=== PATIENT | male | born 1930 | race Caucasian/White ===

== ENCOUNTER 2017-04-05 06:01 | Inpatient (IN) | payer MEDICARE ==
[~2017-04-05] VITALS: Ht 153.9 cm; Wt 50.7 kg
[2017-04-05] VITALS (9 sets, daily range): BP systolic 126–160; BP diastolic 63–89; PULSE 76–100; RESP 12–19; O2SAT 94–97
--- NOTE | 2017-04-05 06:11 | ED.REPORT ---
HPI-Trauma Minor / Fall Date of Service Apr 05, 2017 ED Provider: Jordy Streeter MD Patient is an 87 year old male with a history of CAD and dementia who presents to the ED via EMS due to a witnessed ground level fall. Associated symptoms include right hip pain. Per the shelter staff, there was no injury to the head or neck and the patient did not lose consciousness. Limited history due to patient's dementia. Nursing Notes Stated Complaint: GROUND LEVEL FALL Chief Complaint: Extremity Trauma Nursing Notes Reviewed: Yes Allergies: Coded Allergies: No Known Allergies (Unverified , 04/05/17) General Time Seen by MD: 06:04 Chief Complaint Fall Hx Obtained From: Patient, Supervisor Cooler Service Arrived By: Ambulance Onset Occurred: Just prior to arrival Symptom Duration: Since onset Caused by: Fall on ground Location: Hip right Quality: Painful Severity: Current: Moderate Similar Sx Previous: No Past Medical History Past Medical History dementia Reports: Coronary artery disease Smoking History Unknown if Ever Smoker Social History Other Social History: Lives in shelter Ambulatory Status Independent Review of Systems Constitutional: Denies: Chills, Fever Respiratory: Denies: Non-productive cough, Shortness of breath Musculoskeletal: Reports: Extremity pain (right hip), Denies: Neck pain Skin: Denies Itching, Denies Rash Neurologic: Denies: Change LOC, Headache, Numbness, Weakness Complete sys rev & neg: except as marked. Physical Exam Initial Vital Signs Vital Signs (First) Date Time Temp Pulse Resp B/P Pulse Ox O2 Delivery O2 Flow Rate FiO2 04/05/17 06:02 36.3 76 19 150/89 97 Room Air Initial VS: Reviewed General/Constitutional: Awake, Alert Neck: Atraumatic, Supple Head / Eyes: Atraumatic, Normocephalic, PERRL, EOMI Respiratory / Chest: Atraumatic, Breath sounds NL, Breath sounds = bilat, No respiratory distress Cardiovascular: Heart rate NL, Regular rhythm, Heart sounds NL Abdomen: Atraumatic, Non-tender abdomen firm Lower Extremity / Pelvis / MS: Atraumatic, No deformity pain with rotation of the right hip no tenderness over the greater trochanteric Skin: Atraumatic, Color NL, No rash, Warm, Dry Interpretation & Diagnostics Lab Results Interpretation Result Diagram: 04/05/17 0625 04/05/17 0625 Test 04/05/17 06:25 White Blood Count 6.9th/mm3 (3.8-10.1) Red Blood Count 4.14mil/mm3 (4.40-5.80) Hemoglobin 12.0g/dL (13.8-17.2) Hematocrit 36.1% (41.0-50.0) Mean Corpuscular Volume 87.2fL (81-100) Mean Corpuscular Hemoglobin 29.0pg (27.0-35.0) Mean Corpuscular Hemoglobin Concent 33.2% (32.0-37.0) Red Cell Distribution Width 13.9% (12.3-15.4) Platelet Count 311bil/L (150-400) Neutrophils (%) (Auto) 70.6% (40-74) Lymphocytes (%) (Auto) 19.5% (14-46) Monocytes (%) (Auto) 7.5% (4-12) Eosinophils (%) (Auto) 2.0% (0-5) Basophils (%) (Auto) 0.3% (0-3) Sodium Level 138mEq/L (134-144) Potassium Level 4.4mEq/L (3.5-5.2) Chloride Level 103mEq/L (97-108) Carbon Dioxide Level 24mmol/L (18-29) Blood Urea Nitrogen 21mg/dL (8-27) Creatinine 0.68mg/dL (0.76-1.27) Estimat Glomerular Filtration Rate 118mL/min (>59) Glucose Level 117mg/dL (60-99) Calcium Level 9.2mg/dL (8.5-10.1) Total Bilirubin 0.3mg/dL (0.0-1.2) Aspartate Amino Transf (AST/SGOT) 17U/L (0-50) Alanine Aminotransferase (ALT/SGPT) 16U/L (0-44) Alkaline Phosphatase 106U/L (25-160) Total Protein 6.4g/dL (6.4-8.4) Albumin 3.7g/dL (3.4-5.0) Hold Pineda Top Tube Received (Received) ECG Interpretation ECG Interpretation: anteroseptal infarct, old abnormal T, consider ischemia, anterior leads Time: 06:21 Interpreted by: ED physician Normal ECG Interpretation: Normal rate (75), Normal sinus rhythm X-Ray Interpretation Xray Interpretation: right intertrochanteric fracture X-Ray Ordered: Hip right Interpretation / Wet Read by: Wet read Resident Interpretation: Abnormal exam Re-Eval/Medical Decision Re-Evaluation/Progress #1: Time of Eval: 07:28 Re-Evaluation/Progress Note: Discussed X-ray and plan for admit with the patient's son. Patient understands and agrees to plan. All questions were addressed. Re-Evaluation/Progress #2: Time of Eval: 08:00 Re-Evaluation/Progress Note: Discussed X-ray and plan for admit. Patient agrees to plan. All questions were addressed. Consultation #1: Referral / Consult Name: Jeffrey Toledo MD Consulted With: Orthopedic, Surgeon Call Returned at: 07:31 Tape Edge Machine Operator: Will see patient (later today), Agrees with eval, Agrees with plan Consultation #2: Referral / Consult Name: Lc Burris MD Consulted With: Hospitalist Call Returned at: 07:59 Tape Edge Machine Operator: Agrees with eval, Agrees with plan, Accepts admit Counseled Regarding: Diagnosis, Lab results, Need for admission Discharge & Departure Impression: Primary Impression: Fall Encounter type: initial encounter Qualified Code: W19.XXXA - Unspecified fall, initial encounter Additional Impression: Intertrochanteric fracture Encounter type: initial encounter Fracture type: closed Fracture alignment : nondisplaced Laterality: right Qualified Code: S72.144A - Nondisplaced intertrochanteric fracture of right femur, initial encounter for closed fracture Disposition: ADMITTED TO HOSPITAL Discharge Condition All VS Reviewed: Yes Condition: Stable Scribe Attestation Portions of this note were transcribed by Olivia Cotton. I, Dr. Streeter personally performed the history, physical exam and medical decision-making; I reviewed and confirmed the accuracy of the information in the transcribed note. Signed by: Hermilo Carnes, 04/05/17 Jordy Streeter MD Apr 05, 2017 06:11 Elis Cotton Apr 05, 2017 06:14
[2017-04-05 06:39] LABS: BASOPHILS % (AUTO) 0.3 % (0-3); MONOCYTES % (AUTO) 7.5 % (4-12); Mean Corpuscular Volume 87.2 fL (81-100); NEUTROPHILS % (AUTO) 70.6 % (40-74); Platelet Count 311 bil/L (150-400)
[2017-04-05] MEDS ORDERED: Ondansetron 2 mg/mL 2 mL Inj IVPUSH PRN ×3 (07:50→08:05)
[2017-04-05] MEDS: HYDROmorphone 0.5 mg/0.5 mL iSecure Syringe IVPUSH PRN ×2 (08:00→08:06)
--- NOTE | 2017-04-05 08:05 | DRSVH ---
PROCEDURE: X-RAY CHEST ONE VIEW, PORTABLE ([id number]) INDICATIONS: trauma TECHNIQUE: One view of the chest was acquired. COMPARISON: None. FINDINGS: Surgical changes and devices: None. Lungs and pleura: No pleural effusions or pneumothorax. Lungs are clear. Mediastinum: Mediastinal contours appear normal. Heart size is normal. Bones and chest wall: Generalized osteopenia. A compression fracture of L1 is present, age indetermin ate. No displaced rib fractures seen. Overlying soft tissues appear unremarkable. IMPRESSION: 1. No acute cardiopulmonary abnormality. 2. Compression fracture L1, age-indeterminate. With history of trauma, lumbar spine series is suggest ed. Dictated by: Riki Wayne M.D. on 04/05/2017 at 7:59 Approved by: Riki Wayne M.D. on 04/05/2017 at 8:03
[2017-04-05] MEDS: HYDROcodone-APAP 5-325 mg Tablet PO PRN ×2 (08:17→19:58)
--- NOTE | 2017-04-05 08:29 | DRSVH ---
PROCEDURE: X-RAY PELVIS W/LAT HIP (RT) ([id number]) INDICATIONS: trauma TECHNIQUE: AP pelvis with lateral view(s) of the right hip(s). COMPARISON: None. FINDINGS: Bones: No dislocations. Pelvic ring appears intact. No suspicious bony lesions. There is an inter trochanteric right hip fracture, mildly angulated and impacted. Soft tissues: The visualized bowel gas pattern is normal. No suspicious soft tissue calcifications. IMPRESSION: Intertrochanteric right hip fracture with mild angulation and impaction, orthopedic surgi bel consultation is recommended. Dictated by: Isaac Gómez M.D. on 04/05/2017 at 8:27 Approved by: Isaac Gómez M.D. on 04/05/2017 at 8:28
[2017-04-05 08:34] LABS: APPEARANCE,URINE CLEAR (CLEAR,HAZY); COLOR,URINE STRAW (YELLOW)
[2017-04-05 08:35] LABS: OCCULT BLOOD,URINE NEGATIVE (NEGATIVE); PH,URINE 6.5 (5.0-8.0); UROBILINOGEN,URINE NORMAL (NORMAL)
--- NOTE | 2017-04-05 08:37 | DRSVH ---
PROCEDURE: X-RAY RIGHT FEMUR, TWO VIEWS ([id number]) INDICATIONS: intertrochanteric fx. TECHNIQUE: 3 views of the femur were acquired. COMPARISON: [facility], CR, XR PELVIS W LATERAL HIP RT, 04/05/2017, 6:50. FINDINGS: Bones: There is osteopenia of the visualized osseous structures. A mildly displaced intertrochanter ic fracture of the proximal right femur is redemonstrated. No distal femoral fracture identified. V isualized bony pelvis appears intact. Soft tissues: There are scattered vascular calcifications. IMPRESSION: 1. Mildly displaced intertrochanteric fracture of the proximal right femur redemonstrated. 2. No distal femoral fracture. Dictated by: Kodak Stein M.D. on 04/05/2017 at 8:34 Approved by: Kodak Stein M.D. on 04/05/2017 at 8:35
--- NOTE | 2017-04-05 10:11 | NUR ---
Admit Patient arrived to room 1030 at about 0900. Transferred to bed full assist. Took multiple staff to turn patient to get extra linen out from underneath him, get nancy alarm in place, and conduct a skin check. Per report from ED, they got report the patient had a unstagable pressure ulcer which was not present for me during the skin check and marketing underwriter did skin check as well. Mepelex applied to sacrum, two on spine, and one on each heel for protection as patient is a thin man. Reports pain in his right hip. A&O to himself only. IV Saline locked, on room air, VS completed, nancy alarm and telemetry in place. music sound light technician reported frequent ectopy and I made hospitalistaware and asked if we could check magnesium orders. orders in place-awaiting result. Patient denies chest pain and shortness of breath.
--- NOTE | 2017-04-05 10:14 | PCM.HPMED ---
Subjective Date of Service Apr 05, 2017 Primary Provider: Admitting Physician: Lc Burris MD Primary Care Physician: Brady Sanchez MD Attending Physician: Lc Burris MD Chief Complaint: Status post witnessed ground-level fall History of Present Illness: 87-year-old male with Alzheimer disease, chronic systolic CHF, CKD, dysphagia, history of NSTEMI, pressure ulcer presented after ground level fall, came from [facility]. as per RN at [facility], pt at baseline severely demented, not communicating, AAOx0, pt was walking to the bathroom and fell, pt doesn't use walker at baseline. Pt stayed since 18mo ago as he lived alone and fell, found to have pressure ulcers. Since he stayed in [facility], refusing all meds, had remote hx of cardiac dz, but not actively following hand washer or PCP. Reportedly family was leaning toward comfort care. ED VS stable, afebrile, Labs were unremarkable.Xray showed Rt proximal femur IT fx. upon interview, pt was AAOx0, refused physical examination upon multiple attempt. unable to follow commands or answer questions. Review of Systems: Pertinent positives as noted in history of present illness. All other systems were reviewed and are negative Allergies Coded Allergies: No Known Allergies (Unverified , 04/05/17) Home Medications not on any meds as pt refuses PMH as described above in HPI Surgical History Unable to obtain surgical history the patient's until status Family History Unable to obtain FHx due to the patient's until status Social History Smoking Status: Unknown if Ever Smoker Exam Vital Signs Vital Sign - Last Date Time Temp Pulse Resp B/P Pulse Ox O2 Delivery O2 Flow Rate FiO2 04/05/17 09:19 36.5 95 16 156/83 94 Room Air Exam Cachectic elderly gentleman nonpurposeful movement of his hands, confused AAOX0 no JVD, MMM, no LAD RRR, nl s1, s2 no mrg CTAB, no w,c S,ND,NT,normoactive BS+ warm, no edema, pulses 2/2 LROM of Rt hip due to pain Lab and Diagnostics Result Diagram: 04/05/1762404/05/17 0625 X-Rays, CTs and MRIs PROCEDURE: X-RAY RIGHT FEMUR, TWO VIEWS ([id number]) INDICATIONS: intertrochanteric fx. TECHNIQUE: 3 views of the femur were acquired. COMPARISON: [facility], CR, XR PELVIS W LATERAL HIP RT, 04/05/2017, 6:50. FINDINGS: Bones: There is osteopenia of the visualized osseous structures. A mildly displaced intertrochanteric fracture of the proximal right femur is redemonstrated. No distal femoral fracture identified. Visualized bony pelvis appears intact. Soft tissues: There are scattered vascular calcifications. IMPRESSION: 1. Mildly displaced intertrochanteric fracture of the proximal right femur redemonstrated. 2. No distal femoral fracture. Dictated by: Kodak Stein M.D. on 04/05/2017 at 8:34 Approved by: Kodak Stein M.D. on 04/05/2017 at 8:35 Assessment & Plan 87-year-old male with Alzheimer disease, chronic systolic CHF, CKD, dysphagia, history of NSTEMI, pressure ulcer presented after witnessed ground level fall, came from [facility]. Acute, active Witnessed ground-level Mechanical fall, POA, resultant Rt proximal IT fx -appreciate ortho consult, likely needs discussion with Son KENNA, regarding pros and cons of this debilitated gentleman -will assess pre-op risks once pt is going for surgery -pain control with tylenol, morphine as needed Chronic, stable hx of chronic HFrEF, NSTEMI, presumed stable pressure ulcer, wound care consult Alzheimer dementia, presumed stable dispo:Patient will be admitted with inpatient status with expectation of inpatient therapy for more than 2 midnights diet:NPO for now, resume dysphagia soft once evaluated by surgery dvt ppx:SCD DNR/DNI per POLST Time spent 65min Lc Burris MD Apr 05, 2017 10:14
--- NOTE | 2017-04-05 12:58 | NUR ---
Inpatient Wound Nurse Call was placed by this CWON RN to [facility] Amalia Neves to confirm unstageable pressure injury over R pelvis that was apparently reported by ER staff when patient was transferred to unit. [facility] Staff informed CWON that wound healed long ago and is no longer an active issue. No wound care required at this time.
[2017-04-05] MEDS ORDERED: NA P133E23 RC (13:44)
[2017-04-05] MEDS ORDERED: BISA10SU61 RC (13:44)
[2017-04-05] MEDS ORDERED: ACET325C PO (13:44)
[2017-04-05] MEDS ORDERED: MAGN400O4 PO (13:44)
[2017-04-05] MEDS: 0.9% Sodium Chloride 1,000 ML IV SCH (22:56)
--- NOTE | 2017-04-05 23:27 | HP ---
[address] [address] HISTORY AND PHYSICAL PATIENT: ZAIRA PIPER : 1930 MR#: [id number] ADMIT: 04/05/2017 JOB ID: [id number] DATE OF SERVICE: 04/05/2017 HISTORY OF PRESENT ILLNESS: The patient is seen in consultation after being admitted for a right hip fracture. He is 87 years old, moderately demented, lives in a residential, and his son is the primary historian. His son states that he has been deteriorating steadily over time and now sleeps much of the day. He continues to walk, but is unstable and does not walk much and has had a significant amount of weight loss over the last several months. PAST MEDICAL HISTORY: Notable for dysphagia, chronic renal disease, chronic congestive heart failure. PHYSICAL EXAMINATION: On examination, he is resting comfortably in bed. Any motion of his right leg causes discomfort. Skin is intact over the right hip. RADIOGRAPHS: Reveal a basilar neck right hip fracture. ASSESSMENT AND PLAN: Discussion with the son today about the treatment options. His son was counseled that the standard treatment for hip fractures is surgical and this is the most likely thing to get the patient up and out of bed transferring and potentially weightbearing again in the future. The patient has been steadily declining in his activities, and he has, by the son's history, fallen many times in the last month, showing a significant decline in his functional capabilities. An alternative approach to open reduction, internal fixation of the hip fracture is to proceed with a hospice care approach to the hip fracture, and this would be reasonable and acceptable. The patient is unlikely to ambulate again with this approach, but it is questionable whether or not he would ever be a safe ambulator following surgical treatment. The family wishes to think about this and they wish to observe him over the next several days to see how much of an issue pain control will be with standard nursing care and a stabilized fracture. We can proceed as the family wishes in this manner and will stay in touch with them as to their preferences. At this point in time, their preference is for observation and nonsurgical management.
[2017-04-06] MEDS: HYDROcodone-APAP 5-325 mg Tablet PO PRN ×5 (00:10→21:18)
[2017-04-06 00:49] VITALS: BP 97/63; PULSE 68; RESP 16; O2SAT 95
--- NOTE | 2017-04-06 04:51 | NUR ---
Pain / appetite Pain adequately controlled with one Vicodin every 4 hours, takes it crushed in pudding without signs of aspiration. Pt was allowed dysphagia diet until midnight but was uninterested in eating more than a few bites. NPO past midnight in case of surgery. Q2 hour turns for skin care. IV fluids infusing at low rate, modest urine output via [place]. Lizy alarm on for safety. Hourly rounding ongoing.
[2017-04-06 06:22] VITALS: BP 128/63; PULSE 79; RESP 16; O2SAT 98
[2017-04-06 08:56] VITALS: BP 133/81; PULSE 65; RESP 18; O2SAT 94
[2017-04-06] MEDS ORDERED: diphenhydrAMINE 25 mg Capsule PO PRN (09:55)
[2017-04-06] MEDS ORDERED: HYDROmorphone 1 mg/mL Inj IVPUSH PRN (09:55)
--- NOTE | 2017-04-06 10:45 | PCM.PNMED ---
Subjective Date of Service Apr 06, 2017 Subjective pt barely oriented to himself, still has nonpurporseful movement, c/o pain on hip, cannot rate his pain on scale, palliative care was consulted for pain management. to facilitate discussion with family awaits son and for possible surgery Exam Vital Signs Vital Sign - Last Date Time Temp Pulse Resp B/P Pulse Ox O2 Delivery O2 Flow Rate FiO2 04/06/17 08:56 36.6 65 18 133/81 94 Room Air Intake and Output 04/05/17 04/05/17 04/06/17 Cumulative From/Thru 15:00 23:00 07:00 04/05/17 06:02 - 04/06/17 06:22 Intake Total 741 ml 741 ml Output Total 400 ml 350 ml 750 ml Balance -400 ml 391 ml -9 ml Intake Oral 228 ml 228 ml IV Total 513 ml 513 ml Output Urine Total 400 ml 350 ml 750 ml # Bowel Movements 0 0 Exam Cachectic elderly gentleman nonpurposeful movement of his hands, AAOx1 no JVD, MMM, no LAD RRR, nl s1, s2 no mrg CTAB, no w,c S,ND,NT,normoactive BS+ warm, no edema, pulses 2/2 LROM of Rt hip due to pain IVs and Medications Medications Reviewed: Medications were reviewed in detail Lab and Diagnostics Result Diagram: 04/05/1762404/05/17624 X-Rays, CTs and MRIs PROCEDURE: X-RAY RIGHT FEMUR, TWO VIEWS ([id number]) INDICATIONS: intertrochanteric fx. TECHNIQUE: 3 views of the femur were acquired. COMPARISON: [facility], CR, XR PELVIS W LATERAL HIP RT, 04/05/2017, 6:50. FINDINGS: Bones: There is osteopenia of the visualized osseous structures. A mildly displaced intertrochanteric fracture of the proximal right femur is redemonstrated. No distal femoral fracture identified. Visualized bony pelvis appears intact. Soft tissues: There are scattered vascular calcifications. IMPRESSION: 1. Mildly displaced intertrochanteric fracture of the proximal right femur redemonstrated. 2. No distal femoral fracture. Dictated by: Kodak Stein M.D. on 04/05/2017 at 8:34 Approved by: Kodak Stein M.D. on 04/05/2017 at 8:35 Assessment & Plan 87-year-old male with Alzheimer disease, chronic systolic CHF, CKD, dysphagia, history of NSTEMI, pressure ulcer presented after witnessed ground level fall, came from [facility]. Acute, active Witnessed ground-level Mechanical fall, POA, resultant Rt proximal IT fx -appreciate follow up, awaits surgery vs no surgery -pt doesn't appearted to have any active cardiac dz which needs cardiac w/u prior to surgery, no s/s of ADHF although pt was not on any meds for long time. EKG sinus, no ischemic chg, renal function stable. -pain control with tylenol, morphine as needed -appreciate palliative care for pain management. Chronic, stable hx of chronic HFrEF, NSTEMI, presumed stable pressure ulcer, wound care consult Alzheimer dementia, presumed stable dispo: pending, back to [facility] after surgery or no surgery diet:NPO for now, resume dysphagia soft once evaluated by surgery dvt ppx:SCD DNR/DNI per POLST VTE Mechanical Devices: Intermittant Pneumatic CD Time spent 35min Lc Burris MD Apr 06, 2017 10:45
--- NOTE | 2017-04-06 11:16 | NUR ---
Palliative Care Palliative Care received verbal order from Dr Burris 04/06/17 to assist with goals of care. Patient admitted 04/05/17. John (son/DPOA) [phone] Dotty (daughter) [phone] Palliative Care to follow. Katie Latif
[2017-04-06 12:18] VITALS: BP 112/63; PULSE 55; RESP 16; O2SAT 92
[2017-04-06] MEDS: 0.9% Sodium Chloride 1,000 ML IV SCH (12:21)
[2017-04-06] MEDS ORDERED: diphenhydrAMINE 2.5 mg/mL 5 mL Syrup PO PRN (12:29)
--- NOTE | 2017-04-06 13:25 | PCM.CONPAL ---
Date of Service Apr 06, 2017 Date of Hospital Admission: Apr 05, 2017 at 08:19 Date of Palliative Consult: Apr 06, 2017 Requesting Provider: Lc Burris MD Reason Palliative Care Consult: Pain, Goals of Care Discussion Hospital Unit @time of consult: Orthopedic/Surgical Care Palliative Care Recommendation Summary of palliative recommendations: -Symptom management (Pain/other) Acute hip fx-comfortable at rest. Tends to fall asleep with hydrocodone 5/325 but also adequate pain control from this med Unclear whether he would walk again with surg but definitely not without surg. Per son the main issue is pain management and that seems to be relatively easy with hydrocodone His son does not think patient would be interested in surg repair but apparently there is concern for other members of the family. Offered to assist in discussion with family to review issues and goals. Will begin lax due to regular dosing of opiates. Dementia- moderate and progressive. QOL has been declining. 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 Details not available Weight loss- unclear if only based in his dementia but not appropriate to evaluate at this time Financial issues-defer to SW/CM to assist. -DPOA/Advanced Directives/POLST-DNR/DNI. Unclear if POLST has been completed. Consider redo at discharge with change to comfort. -Family/emotional support- son. -Spiritual support-pt states he is not interested Offered assistance in discussion with family to the son- John ([phone]). Reviewed goal would be to decide re surgery in the next 24 hours and if decision is to not pursue surgical intervention then plan for placement. he will contact the office tomorrow if needed. Encouraged nursing staff to monitor for pain raquel with turning and consider prn dosing. diet advanced since for now- no surg. CM/SS aware of financial issues. Consider hospice info visit upon discharge. Problems: End of Life Preferences DNR/DNI Goals of Care At this point goal is for nonsurgical approach of time and patience. This will mean likely back to ECF soon as long as pain is controlled. He will be unlikely to attempt OOB in near future due to the reminder of pain. Disposition Presuming back to [facility] when stable with bedrest and pain meds Resuscitation Status Resuscitation Status: DNR/DNI:Do Not Resuscitate/Intubate Limited Interventions: Medications and IV Fluid POLST Updates/Changes Artificially Admin Nutrition: No Artifical Nutrition by Tube POLST Discussed with: Health Care Agent (DPOAHC) . Pain: Mild Pt History History of Present Illness PALLIATIVE CARE CONSULTATION Reason: GOC/pain management Requesting- Dr. Dayton So taken from his hospital record and from TC discussion with his son John. 87 yo male who has been at [facility] under the care of Dr. Sanchez since October of this year. He had been at home with progressive dementia, frequent falls and what sounds like poor self care. He has had a decrease in appetite and would forget to eat and was having progressive weight loss. Since being at [facility] he was discharged from rehab due to an unwillingness/ inability to cooperate. He has continued to lose weight with report of a 20# loss over the past 4-5 months. He has frequent falls. His son is DPOAHC and manages his finances. He has been working on getting him on medicaid to cover [place] expenses and states he just compiled the paperwork. His son feels his father would prefer to do nothing about his fracture. The pt states the same but doesn't recall having a fx. The son states Dr. Toledo had made a statement that the decision on surg could be postponed for up to 1 week and the son took that to mean he would be here for that time. He fears he will try and get out of bed again at the [facility] if he is sent back too soon. His son indicates that there is some concern by his children if the decision is to not do surgery. Past Medical History Significant PMH Noted: Hx dementia hx ASCAD with hx OK hx abrasions and ulcerations on legs from fall-took months to heal Alleged CRI but creat wnl weight loss gait instability unknown smoking or ETOH hx-- none recently Social History Occupation: retired Social Support: son John and LYNSEY Spiritual Support Spiritual Support unknown Responsive Patient Symptoms Pain (current): Mild Tiredness/Fatigue: Moderate (son states sleeps a lot daytime, can get agitated in royer) Nausea: None Depression: None Anxiety: None Anorexia: Moderate Constipation unknown Palliative Performance Scale PPS Patient Status: Baseline PPS Ambulation: Mainly Sit/Lie PPS Activity: Unable to do any activity PPS Self-Care: Considerable assistance required PPS Intake: Normal or reduced PPS Conscious Level: Full or drowsey, +/- confusion Performance Scale: 30% ADLs ADL Ambulation: Totally Bed ADL Dressing: Occasional assistance necessary ADL Feeding: Occasional assistance necessary ADL Hygene/bathing: Total care ADL Transfers: Total care Allergy Allergies Reviewed: Yes Medications Current Medications: Current Medications Ondansetron HCl 4 mg Q15MIN PRN IVPUSH Last administered on 04/05/17 08:00; Admin Dose 4 MG; Start 04/05/17 at 07:50; Stop 04/05/17 at 08:03; Status DC Hydromorphone HCl 0.5 mg Q15MIN PRN IVPUSH Last administered on 04/05/17 08:06 ; Admin Dose 0.5 MG; Start 04/05/17 at 07:50; Stop 04/05/17 at 20:30; Status DC Ondansetron HCl 4 to 8 mg Q4H PRN IVPUSH; Start 04/05/17 at 08:00 Acetaminophen 650 mg Q4H PRN PO; Start 04/05/17 at 08:00 Acetaminophen/ Hydrocodone Bitart 1-2 TABS Q4H PRN PO Last administered on 04/06 12:22; Admin Dose 1 TABLET; Start 04/05/17 at 08:00 Ondansetron HCl Dose range: 4 mg to 8 mg Q4H PRN IVPUSH; Start 04/05/17 at 08: 05; Stop 04/05/17 at 20:30; Status DC Sodium Chloride 1,000 ml @ 75 mls/hr [id number] IV Last administered on 04/06/17 12:21; Admin Dose 75 MLS/HR; Start 04/05/17 at 20:35 Hydromorphone HCl for severe pain Q4H PRN IVPUSH; Start 04/06/17 at 09:55 Diphenhydramine HCl 12.5 mg Q6H PRN PO; Start 04/06/17 at 09:55; Stop 04/06/17 at 12:29; Status DC Diphenhydramine HCl 12.5 mg Q6H PRN PO; Start 04/06/17 at 12:29 Scheduled PRN Acetaminophen (Acetaminophen) 325 Mg Capsule 325-650 MG PO q4 hours PRN PRN For Pain Bisacodyl (Dulcolax Rectal) 10 Mg Supp.rect 10 MG RC DAILY PRN PRN For Constipation Magnesium Hydroxide (Milk of Magnesia) 400 Mg/5 Ml Oral.susp 30 ML PO DAILY PRN PRN For Constipation Na Phos,M-B/Na Phos,Di-Ba (Fleet Enema) 133 Ml Enema 133 ML RC DAILY PRN PRN For Constipation Objective Findings Exam Vital Sign - Last Date Time Temp Pulse Resp B/P Pulse Ox O2 Delivery O2 Flow Rate FiO2 04/06/17 12:18 36.7 55 16 112/63 92 Room Air Intake and Output 04/05/17 04/05/17 04/06/17 Cumulative From/Thru 15:00 23:00 07:00 04/05/17 06:02 - 04/06/17 06:22 Intake Total 741 ml 741 ml Output Total 400 ml 350 ml 750 ml Balance -400 ml 391 ml -9 ml Intake Oral 228 ml 228 ml IV Total 513 ml 513 ml Output Urine Total 400 ml 350 ml 750 ml # Bowel Movements 0 0 Objective comfortable in bed but with twinges of pain R hip General: Oriented, Person HEENT: EOMI, Scleral Anicteric Heart: Regular Rate/Rhythm Lungs: Clear to Auscultation Abdomen: Soft Neuro: Follows Commands, Spontaneous Eye Opening, Cranial Nerve 3-12 Intact Extremities: No Edema Lab/Diagnostics Lab and Imaging results reviewed in detail in EMR. Hgb 12, Cr-.68 Patient/Family Conference Members Present Family Members Present TC to leland Lopez Medical Team Members Present? Claudette CAR, PC Discussion/Goals of Care Discussion FAMILY UNDERSTANDING OF DISEASE: DISEASE PROGRESSION/EVIDENCE OF DECLINE: SYMPTOM BURDEN: GOALS: HOPES/WORRIES: FAMILY WISHES/VALUES: Do you want to be told truth about his illness, even if unpleasant? Does family want to know prognosis when it can be predicted, to better guide treatment decisions? What is quality of life for the patient: to be able to interact with their loved ones and friends, to travel, not to be bedbound, to be independent in taking care of themselves: Would patient choose quality of life over quantity of life? Would comfort care be more important than being awake and alert? If patient is no longer alert and aware because of their illness, would you choose comfort for them? Palliative Care counselled: Time spent Total time 60 minutes; >50% face to face with patient and/or family, providing counselling regarding plans and recommendations, and in care coordination with his/her medical teams. This included eval of pt review of chart discussion with son and CM and hospitalist. copies to: Brady Sanchez MD, Deborah A MD Apr 06, 2017 13:24
--- NOTE | 2017-04-06 13:43 | NUR ---
Pain/Appetite Patient was denying pain this AM but upon turning to touching RLE, patient grimaces and yells in pain. He was restless for most of the morning-ripping telemetry and his gown off. He continued to refuse pain medication until a little after noon. He took the pain pill and has been sleeping calmly since. Patient has not wanted much to eat this shift. Did encourage some bites of vanilla pudding with pain medication administration. He took two bites and refused any more. Continuing to turn patient Q2 hours. Assessing pain level and pain management needs. Did speak with Dr. Crowley with palliative care and she is following his pain management and effectiveness of current regimen.
--- NOTE | 2017-04-06 13:47 | NUR ---
Activity Patient was restless this AM-pulling telemetry leads off and taking his gown off. When attempting to help untangle the patient from the telemetry leads, he told staff to leave him alone. Telemetry has been DC'd and patient continues to be in bed without a gown but has blankets on and is currently sleeping comfortably and calmly. He does not attempt to get out of bed- with any movement, he grimaces and yells in pain. Continuing Q2 hour turns. Mepelex in place for skin protection. Koenig catheter in place. Addendum: 04/06/17 at 1612 by PHI ANDERSON RN Patient is much more calm compared to the beginning of this shift. He is pleasant to talk to and stretches his arms out for a hug when you walk into the room. He did accept a pain pill and has been less restless in bed.
[2017-04-06 20:19] VITALS: BP 161/84; PULSE 99; RESP 16; O2SAT 93
--- NOTE | 2017-04-06 23:02 | NUR ---
Agitation/pain Pt was found to have pulled out his IV and was tugging on Hamilton. Pt was instructed not to pull hamilotn, as it would hurt him and be very painful, pt appears to understand and has not pulled on hamilton since. Pt however very agitated while turning in bed and grabs at staff. Three people needed to safely turn pt. Pt was able to take 1 Vicodin for pain after being turned in bed. Pt now appears comfortable. Addendum: 04/07/17 at 0632 by MICHA MOMIN RN Itching Pt given liquid Benadryl for itching skin all over. This did seem to help as pt is no longer itching himself.
[2017-04-07 05:01] VITALS: BP 158/89; PULSE 66; RESP 16; O2SAT 97
[2017-04-07] MEDS: 0.9% Sodium Chloride 1,000 ML IV SCH ×2 (06:41→17:58)
[2017-04-07] MEDS: HYDROcodone-APAP 10-325 mg PO SCH ×3 (09:00→21:45)
--- NOTE | 2017-04-07 09:09 | PCM.PALLBR ---
Palliative Care Recommendation Summary of palliative recommendations: Symptom management (Pain/other): Acute hip fx-comfortable at rest. Has tolerated prn HC/APAP () well, but had agitation last night, likely due to pain, resolved with use of pain meds. 1. Pain: Start scheduled HC/APAP () 1 po q 6 hours to prevent pain, and monitor effectiveness. Leave PRN HC/APAP (325) order in place for now and monitor how often breakthrough pain meds are needed, if at all. 2. Laxative Regimen: Continue Senna q HS to prevent opiate induced constipation. 3. Quiet delirium: trial 2.5mg of olanzapine now to see if able to reduce restlessness, inattentiveness. If helpful, may start 2.5mg q HS. (Bonus side effect: appetite stimulant). Prognosis: Unclear whether he would walk again with surgery but definitely not without surgery. Pt is eligible for hospice based on his heart failure with EF of 15-20%, and fact that he will now be bedbound due to his hip fracture that family does not plan to get repaired. Pt is moderately demented but able to feed himself and engage in a limited conversation (when not delirious). He cannot understand the consequences of any health choices. Harish Index calculation is 19 for this pt, which means he has a 49-62% chance of dying in next six months. Goal: Per son John ([phone]), the main issue is to pain management. Family Meeting: Dr. Momin met with John today and informed him that his father says he does not want surgery, but currently the patient is not capacitated to understand positive and negative outcomes of this decision, so John needs to act on his behalf as his decision maker. John states he doesn't want to put his Dad through any surgery. John relates that his father has had several falls at home when he was alone and has failed to be able to participate in rehab at his nursing facility after his last hospital admission. John is now interested in comfort care and would like to have a hospice information visit set up. He gave his number and that of his , Julia ([phone]) as contacts for the hospice agency. He said that Julia is his father's alternate POA, and can sign paperwork if John is not available. John plans to go out of town for a short business trip in next few days. John and Dr. Momin also reviewed a POLST form together. John says there is a POLST form at [facility] but he thinks it says "DNR/DNI with limited interventions. " He is now interested in changing the POLST form to read: DNR/DNI with comfort care. He took a blank form home to discuss with the rest of his family. He is the only living child of the patient, but his four adult children are also involved in the family discussions about how to help the patient. He plans to bring the POLST back and complete it with Pall Care Team after talking to his family at home. -DPOA/Advanced Directives/POLST-DNR/DNI. Prior POLST at [facility] with limited interventions. Plan is to change/update/make a new POLST at discharge with change to comfort. -Family/emotional support- son John as above. -Spiritual support- pt states he is not interested Problems: End of Life Preferences DNR/DNI Goals of Care At this point goal is for nonsurgical approach of time and patience. This will mean likely back to ECF soon as long as pain is controlled. He will be unlikely to attempt OOB in near future due to the reminder of pain. Disposition Presuming back to [facility] when stable with bedrest and pain meds. POA leland Lopez asked for a hospice info visit today (04/07). Resuscitation Status Resuscitation Status: DNR/DNI:Do Not Resuscitate/Intubate Limited Interventions: Medications and IV Fluid POLST Updates/Changes Previous POLST?: Yes POLST Last Review Date: Apr 07, 2017 Artificially Admin Nutrition: No Artifical Nutrition by Tube POLST Discussed with: Health Care Agent (DPOAHC) POLST Review Outcome: No Change . Advanced Care Planning Address: POLST, Code status change, Comfort care Total time 65 minutes; >50% face to face with patient and/or family, providing counselling regarding plans and recommendations, and in care coordination with his/her medical teams. Palliative Brief Note Date of Service Apr 07, 2017 . Palliative Care Follow-up Reason: GOC/pain management Requesting- Dr. Dayton So taken from his hospital record and from TC discussion with his son John. Patient Identification: 87 yo male who has been at [facility] under the care of Dr. Sanchez since October 2016. He had been at home with progressive dementia, frequent falls and what sounds like poor self care. He has had a decrease in appetite and would forget to eat and was having progressive weight loss. Since being at [facility] he was discharged from rehab due to an unwillingness/ inability to cooperate. He has continued to lose weight with report of a 20# loss over the past 4-5 months. He has frequent falls. His son is DPOAHC and manages his finances. He has been working on getting him on medicaid to cover [place] expenses and states he just compiled the paperwork. His son feels his father would prefer to do nothing about his fracture. The pt states the same but doesn't recall having a fx. The son states Dr. Toledo had made a statement that the decision on surg could be postponed for up to 1 week and the son took that to mean he would be here for that time. He fears he will try and get out of bed again at the [facility] if he is sent back too soon. His son indicates that there is some concern by his children if the decision is to not do surgery. Subjective: pt restless, picking at sheets, his IV line, pushing and pulling at his over the bed table, states his pudding (with pain pill crushed in it) tastes bad. Encouraged to finish last bite, and he did. Later refused to take olanzapine (dissolvable) from his RN, ordered as trial for quiet delirium (see Plan). Exam: Overall, he is comfortable in bed at rest, source of pain: R hip General: oriented to self only.thinks he is at [facility]. very restless in bed Chest wall: concave, with kyphosis of back HEENT: EOMI, Scleral Anicteric, only intermittent eye contact Heart: Regular Rate/Rhythm Lungs: Clear to Auscultation Abdomen: Soft,+bowel sounds, scaphoid abdomen Neuro: alert, speech clear, able to engage in conversation but distracted, inattentive to examiner, Cranial Nerve 3-12 Intact, Extremities: No Edema Yandy Momin MD Apr 07, 2017 09:09
[2017-04-07] MEDS: HYDROcodone-APAP 5-325 mg Tablet PO PRN (09:18)
[2017-04-07] MEDS: OLANZapine Zydis ODT 5 mg Tablet PO STA ×2 (09:24→10:29)
[2017-04-07] MEDS ORDERED: OLANZapine Zydis ODT 5 mg Tablet PO SCH (09:25)
--- NOTE | 2017-04-07 10:00 | NUR ---
Verbal Signature given by phone by pt's DPOA John Sosa. Pt is not oriented to understand YASMIN Hensley
--- NOTE | 2017-04-07 10:33 | NUR ---
Agitation Patient has been restless so far this shift with no change after pain medication administration. Dr. Oneil in to see patient and ordered zyprexa. Attempted to administer to patient X3 and he continued to refuse any medication and yelled "No I don't want any pill. Nothing helps. No." Unable to convince patient to take dose of zyprexa. Will attempt again in a little while. The patient did state that he just doesn't feel right and he isn't sure what it is he feels. He continues to refuse being turned due to pain, but is able to relax, stop grimacing, and looks comfortable after repositioning is complete. He was able to eat breakfast independently. He ate entire meal and drank the juice and milk that was on his tray. Addendum: 04/07/17 at 1638 by PHI ANDERSON RN attemped once again to have patient take zyprexa ordered this AM. Patient continues to refuse all PO medications and by chance will occasionally take one. Talked with pharmacy and this medication can be administered IM versus PO. Contacted Dr. Momin with palliative care and left message with her. Awaiting a call back. Addendum: 04/07/17 at 1707 by PHI ANDERSON RN New orders received from Ada Momin MD with palliative care. Patient has been resting calmly in bed for a few hours.
--- NOTE | 2017-04-07 10:37 | NUR ---
Social Work- Initial Assessment/ Multidisciplinary Rounds Data: See Initial Assessment and Advance Directive Intervention for additional information. Pt discussed in rounds. Pt to have meeting with Palliative Care today at 11 am. Pt's son is deciding on whether pt will have surgery, pt likely to be bedbound either way. Pt is a 87 year old male admitted 04/05/17 for right intertrochanteric fracture per H&P. Pt's insurance is [facility]. Pt's PCP is Rashi Sanchez MD. Pt's readmit risk score is 2. SW met with pt at bedside regarding discharge plan, SW role explained. Pt's designated personnel worker and DPOA is leland Lopez [phone]. Pt has dementia at baseline, is not oriented x3. Pt's capacity for self-care assessed. Pt is not capable of self-care at this time. Pt requires increasing assistance at baseline and will likely require total care after this hospitalization as pt will likely be bedbound. Pt resides at [facility] as a rehab patient that has transitioned to more technician terminal and repeater care oriented as pt is not meaningfully participating with rehab and has used his [facility] benefits. Pt's son has been paying out of pocket for this care, which is not sustainable halfway. Pt's son is working on [facility] LTC application and has a meeting scheduled with [employer] to complete this application. Pt's son is hopeful that pt will be able to transition to a memory care facility for technician terminal and repeater. Pt's son is aware of options and facilities in the surrounding area. Prior to pt moving to [facility], pt lived alone at home in [place]. Per son, pt's mobility and mentation decreased over time and pt's falls were increasing. Pt's son identifies that these falls have continued at [facility], which concerns him. Pt screens in for RCS report. Prior to [facility], pt used a cane at baseline and had a walker available for use. Pt does not drive. Pt has no history with services. Pt has no history with SNF services other than [facility]. T/C to [facility] regarding pt's return. Racheal, admissions at [facility], is agreeable to pt returning at d/c and then transitioning to LTC. Pt's son is agreeable with this plan, irrespective of surgical intervention obtained at the hospital. Paperwork in pt's chart. SW informed son that Discharge planning Checklist will be in pt's room and requested that son contact [employer] if needs identified. SW provided phone number and plan on whiteboard. All updated and agreeable to plan. SW will continue to follow. Assessment: Pt for whom return to SNF is medically indicated. Plan: Pt to discharge to [facility] with Stickle to follow. Pt's son is working on [facility] LTC application. Palliative care consulting with son today. Paperwork in chart. JOEY will continue to follow. YASMIN Montilla Addendum: 04/07/17 at [address] Amended: Links added.
--- NOTE | 2017-04-07 15:25 | NUR ---
Palliative care note D/A: Dr. Momin has met with pt son and discussed goals of care. Son John, who is also POA, is interested in hospice services. Dr. Momin has written order for hospice. Please note that John can be reached at [phone] and his spouse Julia, who is alternate POA can be reached at [phone]. Phone call to John to discuss. John met with [facility] and submitted a Medicaid application today. He is working with Serge at [facility] and has not been given a timeline for approval. He has also been working with two patent attorney's to help ready pt estate for Medicaid. He has worked out an agreement with [facility] that he is currently privately paying all of pt income ( 1500/mo) as pt is private pay at this time and LTC resident. Plan is that Medicaid will be approved and retroactive for past accounts. Pt will eventually be [facility]. Discussed with John the choice list for hospice agencies in this area. He is aware that as his father is in [facility] is only choice. He is agreeable to [facility] services. Phone call to Shelbie at [facility]. Arrange with her for 1000 info visit with W on 04/08/17. Have discussed above with noé Freeman. P: Palliative care to follow. Lorie CHAVIRA, [facility]
[2017-04-07] MEDS ORDERED: Haloperidol 5 mg/mL Inj IV PRN (17:05)
--- NOTE | 2017-04-07 19:59 | PCM.PNMED ---
Subjective Date of Service Apr 07, 2017 Subjective Patient is in bed, looks comfortable. Exam Vital Signs Vital Sign - Last Date Time Temp Pulse Resp B/P Pulse Ox O2 Delivery O2 Flow Rate FiO2 04/07/17 05:01 36.9 66 16 158/89 97 Room Air Intake and Output 04/06/17 04/06/17 04/07/17 Cumulative From/Thru 15:00 23:00 07:00 04/05/17 06:02 - 04/07/17 05:31 Intake Total 797 ml 300 ml 1838 ml Output Total 300 ml 1050 ml Balance 497 ml 300 ml 788 ml Intake Oral 0 ml 228 ml IV Total 797 ml 300 ml 1610 ml Output Urine Total 300 ml 1050 ml # Bowel Movements 0 Exam PHYSICAL EXAM: GENERAL: Alert, not in distress, cooperative HEAD: atraumatic, normocephalic, no bruises. EYES: ANTHONY, EOMI, anicteric, able to fully open and close eyelids SKIN: Skin color normal, turgor normal. No visible rashes or lesions. EAR, NOSE, MOUTH, THROAT: Lips, oral mucosa, tongue gums, oropharynx are moist , pink, no lesions. Ears normal appearance, no lesions. NECK: supple ROM normal. RESPIRATORY: Lungs clear to auscultation. Good diaphragmatic excursion. Normal percussion sound. CARDIAC: normal S1 and S2; no rubs, murmurs, or gallops; regular rate and rhythm ABDOMEN: Abdomen soft, non-tender. BS normal. No masses or organomegaly. MUSCULOSKELETAL: ROM full, muscles are not tender EXTREMITIES: no pitting edema in LE, no new deformities or skin discoloration. NEURO: Alert, oriented X 1, Cranial nerves II-XII intact, Grossly normal motor function. PULSES: 2+ radial, 2+ carotid REVIEW OF SYSTEMS: GENERAL: no malaise, no fevers., SEE HPI HEENT: Negative for frequent or significant headaches All other reviewed and negative other than HPI. IVs and Medications Medications Reviewed: Medications were reviewed in detail Lab and Diagnostics Result Diagram: 04/05/1762404/05/17624 X-Rays, CTs and MRIs PROCEDURE: X-RAY RIGHT FEMUR, TWO VIEWS ([id number]) INDICATIONS: intertrochanteric fx. TECHNIQUE: 3 views of the femur were acquired. COMPARISON: [facility], CR, XR PELVIS W LATERAL HIP RT, 04/05/2017, 6:50. FINDINGS: Bones: There is osteopenia of the visualized osseous structures. A mildly displaced intertrochanteric fracture of the proximal right femur is redemonstrated. No distal femoral fracture identified. Visualized bony pelvis appears intact. Soft tissues: There are scattered vascular calcifications. IMPRESSION: 1. Mildly displaced intertrochanteric fracture of the proximal right femur redemonstrated. 2. No distal femoral fracture. Dictated by: Kodak Stein M.D. on 04/05/2017 at 8:34 Approved by: Kodak Stein M.D. on 04/05/2017 at 8:35 Assessment & Plan 87-year-old male with Alzheimer disease, chronic systolic CHF, CKD, dysphagia, history of NSTEMI, pressure ulcer presented after witnessed ground level fall, came from [facility]. Acute, active Witnessed ground-level Mechanical fall, POA, resultant Rt proximal IT fx -appreciate follow up -pt doesn't appearted to have any active cardiac dz which needs cardiac w/u prior to surgery, no s/s of ADHF although pt was not on any meds for long time. EKG sinus, no ischemic chg, renal function stable. -pain control with tylenol, morphine as needed -appreciate palliative care for pain management. - family to decide regarding further goals of care Chronic, stable hx of chronic HFrEF, NSTEMI, presumed stable pressure ulcer, wound care consult Alzheimer dementia, presumed stable dispo: pending, back to [facility] after surgery or no surgery dvt ppx:SCD DNR/DNI per POLST VTE Mechanical Devices: Intermittant Pneumatic CD Resuscitation Status: DNR/DNI:Do Not Resuscitate/Intubate Limited Interventions: Medications and IV Fluid Flex Ibarra MD Apr 07, 2017 19:59
[2017-04-07 20:15] VITALS: BP 179/84; PULSE 94; RESP 18; O2SAT 94
[2017-04-08] MEDS: HYDROcodone-APAP 10-325 mg PO SCH ×4 (03:00→21:00)
--- NOTE | 2017-04-08 03:50 | NUR ---
Medication Pt is alert and oriented with baseline confusion. Non compliance to care. Several attempt made before he took his scheduled medication. No nausea, vomiting or diarrhea. Koenig cath in place, patent and draining trish color urine. Was restless at the beginning of this shift. Threw away bed covers and blanket. Eventual settle down and able to get some sleep. Minimal bed movement on his own. Wouldn't let staff repositioned him. At this current moment pt is sleeping soundly and hourly rounding continues.
[2017-04-08 05:00] VITALS: BP 154/68; PULSE 104; RESP 20; O2SAT 97
[2017-04-08] MEDS ORDERED: ACET325C PO (09:22)
--- NOTE | 2017-04-08 12:44 | PCM.PALLBR ---
Palliative Care Recommendation Summary of palliative recommendations 04/08/17-Hip fx- decision is to aim for comfort care only--no surg. He has adequate pain control and I think is very sensitive to medication dosing--reason RN was preferring hydrocodone at 5 mg rather than 10 mg. 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 Med management-has PO and IV options for control. Hospice info visit completed. Placement presently an issue due to payment problems and application just place with HS per son. When awake his appetite is variable and this will probably be a deciding factor on his prognosis. I would not be surprised if he within the next month due to bedridden situation. Symptom management (Pain/other): Acute hip fx-comfortable at rest. Has tolerated prn HC/APAP (5/325) well, but had agitation last night, likely due to pain, resolved with use of pain meds. 1. Pain: Start scheduled HC/APAP (10/325) 1 po q 6 hours to prevent pain, and monitor effectiveness. Leave PRN HC/APAP (5/325) order in place for now and monitor how often breakthrough pain meds are needed, if at all. 2. Laxative Regimen: Continue Senna q HS to prevent opiate induced constipation. 3. Quiet delirium: trial 2.5mg of olanzapine now to see if able to reduce restlessness, inattentiveness. If helpful, may start 2.5mg q HS. (Bonus side effect: appetite stimulant). Prognosis: Unclear whether he would walk again with surgery but definitely not without surgery. Pt is eligible for hospice based on his heart failure with EF of 15-20%, and fact that he will now be bedbound due to his hip fracture that family does not plan to get repaired. Pt is moderately demented but able to feed himself and engage in a limited conversation (when not delirious). He cannot understand the consequences of any health choices. Harish Index calculation is 19 for this pt, which means he has a 49-62% chance of dying in next six months. Goal: Per son John ([phone]), the main issue is to pain management. Family Meeting: Dr. Momin met with John today and informed him that his father says he does not want surgery, but currently the patient is not capacitated to understand positive and negative outcomes of this decision, so John needs to act on his behalf as his decision maker. John states he doesn't want to put his Dad through any surgery. John relates that his father has had several falls at home when he was alone and has failed to be able to participate in rehab at his nursing facility after his last hospital admission. John is now interested in comfort care and would like to have a hospice information visit set up. He gave his number and that of his , Julia ([phone]) as contacts for the hospice agency. He said that Julia is his father's alternate POA, and can sign paperwork if John is not available. John plans to go out of town for a short business trip in next few days. John and Dr. Momin also reviewed a POLST form together. John says there is a POLST form at [facility] but he thinks it says "DNR/DNI with limited interventions. " He is now interested in changing the POLST form to read: DNR/DNI with comfort care. He took a blank form home to discuss with the rest of his family. He is the only living child of the patient, but his four adult children are also involved in the family discussions about how to help the patient. He plans to bring the POLST back and complete it with Pall Care Team after talking to his family at home. -DPOA/Advanced Directives/POLST-DNR/DNI. Prior POLST at [facility] with limited interventions. Plan is to change/update/make a new POLST at discharge with change to comfort. -Family/emotional support- leland Lopez as above. -Spiritual support- pt states he is not interested Problems: End of Life Preferences DNR/DNI Goals of Care At this point goal is for nonsurgical approach of time and patience. This will mean likely back to ECF soon as long as pain is controlled. He will be unlikely to attempt OOB in near future due to the reminder of pain. Disposition Presuming back to [facility] when stable with bedrest and pain meds. POA leland Lopez asked for a hospice info visit today (04/07). Resuscitation Status Resuscitation Status: DNR/DNI:Do Not Resuscitate/Intubate Limited Interventions: Medications and IV Fluid POLST Updates/Changes Previous POLST?: Yes POLST Last Review Date: Apr 07, 2017 Artificially Admin Nutrition: No Artifical Nutrition by Tube POLST Discussed with: Health Care Agent ([facility]) POLST Review Outcome: No Change . Pain: Moderate Symptom management: Agitation, Delirium Total time 40 minutes; >50% face to face with patient and/or family, providing counselling regarding plans and recommendations, and in care coordination with his/her medical teams. Including coordinating with CM, RN and med management. I also spent an additional [ ] minutes counseling for advanced care planning with the patient/the patients family/the surrogate decision maker. copies to: Brady Sanchez MD Palliative Brief Note Date of Service Apr 08, 2017 . 87 yo pt with hx of frequent falls with an acute R hip fracture. He has dementia and progressive weight loss due to anorexia and decreased PO intake and has been at [facility] since October. His son is only relative and is his POA. Decision has been to not intervene and goal of comfort care. He has had a hospice info visit this AM--unclear as to result. Pt ate well yest but so far today (now noon) he has been asleep and no PO He declined routine meds yest royer and was given IV hydromorphone 0.5 mg at 0530 and haloperidol yest royer--this achieved pain control and sedation. O: somnolent, occ myoclonus, thin to nearly cachectic NAD VSS with BR mid 140's/, HRR no edema abd scaphoid no new labs hamilton in place Gissel Crowley MD Apr 08, 2017 12:43
[2017-04-08 12:52] VITALS: BP 137/76; PULSE 79; RESP 18; O2SAT 96
[2017-04-08] MEDS: 0.9% Sodium Chloride 1,000 ML IV SCH ×2 (14:40→14:43)
--- NOTE | 2017-04-08 15:30 | NUR ---
Pain Patient has been sleeping most of shift. Awakened for assessment and went back to bed. Denies any pain, shows no s/s of pain either. IV fluids completed and line needed to be changed. Primary RN went to take old line off patient and he said "Don't touch that, I'll bleed to ." Palliative care made aware of this as well as patient's status in that he has been asleep most of day. Refusing turns as well.
--- NOTE | 2017-04-08 15:41 | NUR ---
Social Work- Continued D/C Planning Data: EMR reviewed. Pt is on day 3 of hospitalization for right intertrochanteric fracture. Pt discussed in multidisciplinary rounds. Pt and son had hospice infovisit today at 10 am, consents were signed. T/C to Referrals at [facility] regarding open date, awaiting return call. JOEY received voicemail from Racheal at [facility] this morning regarding pt's d/c plan. Racheal looked into [facility] application and it is not showing as active as of this morning. Per Racheal, unless pt is coming in under [facility] skilled they will not be able to accept pt back at this time with hospice unless pt's son pays [facility] portion of stay (as hospice is covered by [facility] and [facility] covers room and board during this stay). In voicemail, it was unclear if [facility] would be willing to accept pt back if the [facility] application has been submitted but not active. Pt is not a candidate for skilled rehabilitation at this time as pt is bedbound and unable to meaningfully participate in skilled therapy. T/C to Sarahi Overton, business center coordinator at [facility], regarding DSHS application and d/c planning. JOEY left message and requested return call before the end of the business day today. As of this note, no return call has been received. T/C to John Sosa, pt's son, regarding [facility]. John confirmed that he had completed [facility] application with Serge yesterday and that the application was submitted. As the application was just submitted, pt's DSHS is likely not active yet. JOEY explained phone call from Racheal at [facility] to John and John confirmed that he spoke with [facility] regarding submission of DSHS application as well. If [facility] application is not showing up as submitted, John will likely have to follow up with Serge @ [facility] to verify completion. John is awaiting update to determine options if [facility] is unable to accept pt with hospice at this time. John stated that he would not be able to privately pay pt's [facility] portion of SNF Hospice stay (which would be approximately $9500 per Racheal). Assessment: Pt who requires total assistance with care and who has signed hospice consents. Plan: SW awaiting t/c from [facility] Early to be able to coordinate discharge and resolve confusion regarding [facility]S application. If [facility] is unable to accept pt with hospice at this time, JOEY will work with John to determine status of [facility] application in addition to coordinating suitable d/c plan for pt. YASMIN Montilla
--- NOTE | 2017-04-08 16:40 | PCM.PNMED ---
Subjective Date of Service Apr 08, 2017 Subjective Patient is in the bed looks comfortable Exam Vital Signs Vital Sign - Last Date Time Temp Pulse Resp B/P Pulse Ox O2 Delivery O2 Flow Rate FiO2 04/08/17 12:52 36.6 79 18 137/76 96 Room Air Intake and Output 04/07/17 04/07/17 04/08/17 Cumulative From/Thru 15:00 23:00 07:00 04/05/17 06:02 - 04/08/17 06:46 Intake Total 0 ml 1172 ml 907 ml 3917 ml Output Total 400 ml 400 ml 1850 ml Balance -400 ml 772 ml 907 ml 2067 ml Intake Oral 0 ml 200 ml 428 ml IV Total 972 ml 907 ml 3489 ml Output Urine Total 400 ml 400 ml 1850 ml # Bowel Movements 0 0 Exam PHYSICAL EXAM: GENERAL: Alert, not in distress, weak HEAD: atraumatic, normocephalic EYES: EOMI, anicteric, able to fully open and close eyelids SKIN: Skin color normal, turgor normal. No visible rashes; patient has chronic pressure ulcers. EAR, NOSE, MOUTH, THROAT: Lips, oral mucosa, tongue are moist, pink, no lesions. NECK: supple ROM normal. RESPIRATORY: Lungs clear to auscultation. Good diaphragmatic excursion. CARDIAC: normal S1 and S2; no rubs, or gallops; regular rhythm ABDOMEN: Abdomen soft, non-tender. BS normal. No masses or organomegaly. MUSCULOSKELETAL: ROM full, muscles are not tender EXTREMITIES: no pitting edema in LE, no new deformities or skin discoloration. NEURO: Alert, oriented X1, Cranial nerves II-XII intact, Grossly normal motor function. PULSES: 2+ radial, 2+ carotid REVIEW OF SYSTEMS: GENERAL: + malaise, no fevers., SEE HPI HEENT: Negative for frequent or significant headaches All other reviewed and negative other than HPI. IVs and Medications Medications Reviewed: Medications were reviewed in detail Lab and Diagnostics Result Diagram: 04/05/1762404/05/17624 X-Rays, CTs and MRIs PROCEDURE: X-RAY RIGHT FEMUR, TWO VIEWS ([id number]) INDICATIONS: intertrochanteric fx. TECHNIQUE: 3 views of the femur were acquired. COMPARISON: [facility], CR, XR PELVIS W LATERAL HIP RT, 04/05/2017, 6:50. FINDINGS: Bones: There is osteopenia of the visualized osseous structures. A mildly displaced intertrochanteric fracture of the proximal right femur is redemonstrated. No distal femoral fracture identified. Visualized bony pelvis appears intact. Soft tissues: There are scattered vascular calcifications. IMPRESSION: 1. Mildly displaced intertrochanteric fracture of the proximal right femur redemonstrated. 2. No distal femoral fracture. Dictated by: Kodak Stein M.D. on 04/05/2017 at 8:34 Approved by: Kodak Stein M.D. on 04/05/2017 at 8:35 Assessment & Plan 87-year-old male with Alzheimer disease, chronic systolic CHF, CKD, dysphagia, history of NSTEMI, pressure ulcer presented after witnessed ground level fall, came from [facility]. Acute, active Witnessed ground-level Mechanical fall, POA, resultant Rt proximal IT fx -appreciate follow up -pt doesn't appearted to have any active cardiac dz which needs cardiac w/u prior to surgery, no s/s of ADHF although pt was not on any meds for long time. EKG sinus, no ischemic chg, renal function stable. -pain control with tylenol, morphine as needed -appreciate palliative care for pain management. - family working with CM/SW on placement Chronic, stable hx of chronic HFrEF, NSTEMI, presumed stable pressure ulcer, wound care consult Alzheimer dementia, presumed stable dispo: pending, back to [facility] after surgery or no surgery dvt ppx:SCD DNR/DNI per POLST VTE Mechanical Devices: Intermittant Pneumatic CD Resuscitation Status: DNR/DNI:Do Not Resuscitate/Intubate Limited Interventions: Medications and IV Fluid Flex Ibarra MD Apr 08, 2017 16:40
[2017-04-08 19:40] VITALS: BP 164/76; PULSE 114; RESP 18; O2SAT 95
[2017-04-09] MEDS: HYDROcodone-APAP 10-325 mg PO SCH ×4 (03:00→21:00)
--- NOTE | 2017-04-09 03:44 | NUR ---
Mentation On initial assessment, patient very cooperative with care. Patient agreed to acetaminophen instead of narcotics for pain. Meds were crushed in applesauce. Patient allowed nurses aid and Rn to turn patient on his side for only a moment. Patient alert and oriented x1 . Patient did persist in fidgeting with brief and hamilton catheter. Brief changed and turned in opposite direction. Call light within reach. Patient instructed on how to use call light. Hourly rounding on patient. Care continues.
[2017-04-09] MEDS: 0.9% Sodium Chloride 1,000 ML IV SCH ×2 (04:35→08:28)
--- NOTE | 2017-04-09 04:39 | NUR ---
Refusal of Care At 0430 vital signs check , patient refused care. Did not allow nursing aid to take vital signs.
[2017-04-09] MEDS ORDERED: LORazepam Oral Conc 2 mg/mL 30 mL Solution SL/PO PRN (10:30)
[2017-04-09] MEDS ORDERED: Haloperidol 2 mg/mL 5 mL Oral Conc Liquid PO PRN (10:30)
[2017-04-09] MEDS ORDERED: Ondansetron 8 mg ODT Tablet PO PRN (10:30)
--- NOTE | 2017-04-09 12:19 | PCM.PALLBR ---
Palliative Care Recommendation Summary of palliative recommendations 04/09/17- Today I placed orders for other routine comfort medications including oral morphine concentrate, lorazepam concentrate, Haldol concentrate, etc. Discontinued all IV medications as he has lost IV access. Continue supportive/comfort care pending disposition decisions As patient is clinically stable and plans in place, palliative medicine will sign off at this time, but please contact us if we may be of further assistance 04/08/17-Hip fx- decision is to aim for comfort care only--no surg. He has adequate pain control and I think is very sensitive to medication dosing--reason RN was preferring hydrocodone at 5 mg rather than 10 mg. 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 Hospice info visit completed. Placement presently an issue due to payment problems and application just place with [facility] per son. When awake his appetite is variable and this will probably be a deciding factor on his prognosis. I would not be surprised if he within the next month due to bedridden situation. Symptom management (Pain/other): Acute hip fx-comfortable at rest. Has tolerated prn HC/APAP (5325) well, but had agitation last night, likely due to pain, resolved with use of pain meds. 1. Pain: As above 2. Laxative Regimen: Continue Senna q HS to prevent opiate induced constipation. 3. Quiet delirium: trial 2.5mg of olanzapine now to see if able to reduce restlessness, inattentiveness. If helpful, may start 2.5mg q HS. (Bonus side effect: appetite stimulant). Prognosis: Unclear whether he would walk again with surgery but definitely not without surgery. Pt is eligible for hospice based on his heart failure with EF of 15-20%, and fact that he will now be bedbound due to his hip fracture that family does not plan to get repaired. Pt is moderately demented but able to feed himself and engage in a limited conversation (when not delirious). He cannot understand the consequences of any health choices. Harish Index calculation is 19 for this pt, which means he has a 49-62% chance of dying in next six months. Goal: Per son John ([phone]), the main issue is to pain management. Family Meeting: Dr. Momin met with John today and informed him that his father says he does not want surgery, but currently the patient is not capacitated to understand positive and negative outcomes of this decision, so John needs to act on his behalf as his decision maker. John states he doesn't want to put his Dad through any surgery. John relates that his father has had several falls at home when he was alone and has failed to be able to participate in rehab at his nursing facility after his last hospital admission. John is now interested in comfort care and would like to have a hospice information visit set up. He gave his number and that of his , Julia ([phone]) as contacts for the hospice agency. He said that Julia is his father's alternate POA, and can sign paperwork if John is not available. John plans to go out of town for a short business trip in next few days. John and Dr. Momin also reviewed a POLST form together. John says there is a POLST form at [facility] but he thinks it says "DNR/DNI with limited interventions. " He is now interested in changing the POLST form to read: DNR/DNI with comfort care. He took a blank form home to discuss with the rest of his family. He is the only living child of the patient, but his four adult children are also involved in the family discussions about how to help the patient. He plans to bring the POLST back and complete it with Pall Care Team after talking to his family at home. -DPOA/Advanced Directives/POLST-DNR/DNI/comfort care -Family/emotional support- son John as above. -Spiritual support- pt states he is not interested Problems: End of Life Preferences DNR/DNI Goals of Care Comfort care Disposition Presuming back to [facility] when stable with bedrest and pain meds. Resuscitation Status Resuscitation Status: DNR/DNI:Do Not Resuscitate/Intubate Limited Interventions: Medications and IV Fluid POLST Updates/Changes Previous POLST?: Yes POLST Last Review Date: Apr 07, 2017 Artificially Admin Nutrition: No Artifical Nutrition by Tube POLST Discussed with: Health Care Agent ([facility]) POLST Review Outcome: No Change . Advanced Care Planning Address: Comfort care Pain: Mild Symptom management: Pain Total time 30 minutes; >50% face to face with patient , providing counselling regarding plans and recommendations, and in care coordination with his medical teams. All of the above time spent counseling/adjusting medications for comfort care with the patient copies to: Brady Sanchez MD Palliative Brief Note Date of Service Apr 09, 2017 . Returned to reevaluate patient. Prior to visiting, reviewed his updated records in the EMR, spoke with his nurse and received signout from Dr. Crowley. When I arrived, he was resting in bed comfortably. He is pleasantly demented. He denies any significant pain, dyspnea, nausea or other symptoms. He says that when he moves it hurts but as soon as he settles down the pain goes away. On exam, skin is warm dry and sallow. Vital signs noted. Lungs clear anteriorly, heart sounds regular, abdomen scaphoid soft and nontender. Francois Márquez MD Apr 09, 2017 12:19 Francois Márquez MD Apr 09, 2017 12:19
--- NOTE | 2017-04-09 14:12 | NUR ---
JAIL TRANSFER : Called and left message for [facility], patient comes from there and should go back there when ready regardless of outstanding bill. Asked for call back so we can finalize plan for patient. COTTON BROKER Director [employer] is aware of this case. Addendum: 04/09/17 at 1540 by MAYRA ORANTES Spoke with Racheal and they confirmed patient can return when ready, patient was there LTC and he can come back if son is agreeable. They understand the responsibility for them to have patient return. Updated COTTON BROKER and COTTON BROKER Director [employer]
--- NOTE | 2017-04-09 16:29 | NUR ---
Turning Intolerance/Comfort Care Patient has a hx with staff of refusing turns. Dr. Márquez states he's on comfort care, turn for comfort only. Patient allowed staff x 2 to turn slightly to his right side, tolerated poorly d/t pain. Admin Tylenol this a.m., plan to admin [place] w/ dinner.
--- NOTE | 2017-04-09 16:40 | PCM.PNMED ---
Subjective Date of Service Apr 09, 2017 Subjective Patient is in bed, looks comfortable awaiting placement Exam Vital Signs Vital Sign - Last Date Time Temp Pulse Resp B/P Pulse Ox O2 Delivery O2 Flow Rate FiO2 04/08/17 19:40 36.9 114 18 164/76 95 Room Air Intake and Output 04/08/17 04/08/17 04/09/17 Cumulative From/Thru 15:00 23:00 07:00 04/05/17 06:02 - 04/09/17 05:40 Intake Total 150 ml 100 ml 300 ml 4467 ml Output Total 600 ml 500 ml 300 ml 3250 ml Balance -450 ml -400 ml 0 ml 1217 ml Intake Oral 100 ml 100 ml 300 ml 928 ml IV Total 50 ml 3539 ml Output Urine Total 600 ml 500 ml 300 ml 3250 ml # Bowel Movements 0 0 Exam PHYSICAL EXAM: GENERAL: Alert, not in distress HEAD: atraumatic, normocephalic EYES: EOMI, anicteric, able to fully open and close eyelids SKIN: Skin color normal, turgor normal. No visible rashes or lesions. EAR, NOSE, MOUTH, THROAT: Lips, oral mucosa, tongue gums, oropharynx are moist , pink NECK: supple ROM normal. RESPIRATORY: Lungs clear to auscultation. Good diaphragmatic excursion. CARDIAC: normal S1 and S2; no rubs, murmurs, or gallops; regular hythm ABDOMEN: Abdomen soft, non-tender. BS normal. No masses or organomegaly. MUSCULOSKELETAL: ROM full, muscles are not tender EXTREMITIES: no pitting edema in LE, no new deformities or skin discoloration. NEURO: Alert, oriented X 1, Cranial nerves II-XII intact PULSES: 2+ radial, 2+ carotid REVIEW OF SYSTEMS: GENERAL: no malaise, no fevers., SEE HPI HEENT: Negative for frequent or significant headaches All other reviewed and negative other than HPI. Lab and Diagnostics Result Diagram: 04/05/1762404/05/17624 X-Rays, CTs and MRIs PROCEDURE: X-RAY RIGHT FEMUR, TWO VIEWS ([id number]) INDICATIONS: intertrochanteric fx. TECHNIQUE: 3 views of the femur were acquired. COMPARISON: [facility], CR, XR PELVIS W LATERAL HIP RT, 04/05/2017, 6:50. FINDINGS: Bones: There is osteopenia of the visualized osseous structures. A mildly displaced intertrochanteric fracture of the proximal right femur is redemonstrated. No distal femoral fracture identified. Visualized bony pelvis appears intact. Soft tissues: There are scattered vascular calcifications. IMPRESSION: 1. Mildly displaced intertrochanteric fracture of the proximal right femur redemonstrated. 2. No distal femoral fracture. Dictated by: Kodak Stein M.D. on 04/05/2017 at 8:34 Approved by: Kodak Stein M.D. on 04/05/2017 at 8:35 Assessment & Plan 87-year-old male with Alzheimer disease, chronic systolic CHF, CKD, dysphagia, history of NSTEMI, pressure ulcer presented after witnessed ground level fall, came from [facility]. Acute, active Witnessed ground-level Mechanical fall, POA, resultant Rt proximal IT fx -appreciate follow up -pt doesn't appearted to have any active cardiac dz which needs cardiac w/u prior to surgery, no s/s of ADHF although pt was not on any meds for long time. EKG sinus, no ischemic chg, renal function stable. -pain control with tylenol, morphine as needed -appreciate palliative care for pain management. - family working with CM/SW on placement with Hospice Chronic, stable hx of chronic HFrEF, NSTEMI, presumed stable pressure ulcer, wound care consult Alzheimer dementia, presumed stable dispo: pending, back to [facility] after surgery or no surgery dvt ppx:SCD DNR/DNI per POLST VTE Mechanical Devices: Intermittant Pneumatic CD Resuscitation Status: DNR/DNI:Do Not Resuscitate/Intubate Limited Interventions: Medications and IV Fluid Flex Ibarra MD Apr 09, 2017 16:40
[2017-04-09] MEDS: HYDROcodone-APAP 5-325 mg Tablet PO PRN (17:14)
--- NOTE | 2017-04-09 17:47 | NUR ---
[place]/Pain/Behavior Patient very resistant to be moved (see previous note). Explained that he would need to be boosted up/sat forward for meal tray, became very angry, yelling at RN to leave him alone, RN also had crushed [place], refused to take. Explained that we needed to boost him for dinner/med & that he couldn't safely eat lying 20 degrees. Refused to be touched. Withheld dinner tray. No IV access, Dr. Mráquez aware of no IV access. Patient experiences pain w/ slight position change, also has dementia. Plan to talk to Md about a fentanyl patch.
--- NOTE | 2017-04-10 02:17 | NUR ---
Agitation During initial assessment, patient became quite agitated with any kind of care. Patient refused medications and turns. Patient did eat some of his dinner. Patient refused to keep gown or blanket on and request to be naked. At 0200, patient hallucinating about windows being broken. Patient denies any kind of pain. Hourly rounding continues.
[2017-04-10] MEDS: HYDROcodone-APAP 10-325 mg PO SCH ×4 (03:00→21:00)
[2017-04-10 08:26] VITALS: BP 139/74; PULSE 101; RESP 18; O2SAT 97
[2017-04-10] MEDS: Morphine 20 mg/mL Oral Syringe SL/PO PRN ×2 (09:04→09:24)
--- NOTE | 2017-04-10 13:30 | PCM.PNMED ---
Subjective Date of Service Apr 10, 2017 Subjective Patient is in the bed, having breakfast, reading a newspaper Exam Vital Signs Vital Sign - Last Date Time Temp Pulse Resp B/P Pulse Ox O2 Delivery O2 Flow Rate FiO2 04/10/17 08:26 37.3 101 18 139/74 97 Room Air Intake and Output 04/09/17 04/09/17 04/10/17 Cumulative From/Thru 15:00 23:00 07:00 04/05/17 06:02 - 04/10/17 05:28 Intake Total 300 ml 120 ml 4887 ml Output Total 200 ml 400 ml 3850 ml Balance 100 ml -280 ml 1037 ml Intake Oral 300 ml 120 ml 1348 ml IV Total 3539 ml Output Urine Total 200 ml 400 ml 3850 ml # Bowel Movements 0 0 Exam PHYSICAL EXAM: GENERAL: Alert, not in distress HEAD: atraumatic, normocephalic, no bruises. EYES: EOMI, anicteric, able to fully open and close eyelids SKIN: Skin color normal, turgor normal. No new visible rashes EAR, NOSE, MOUTH, THROAT: Lips, oral mucosa, tongue are moist, pink, no lesions NECK: supple ROM normal. RESPIRATORY: Lungs clear to auscultation. Good diaphragmatic excursion. CARDIAC: normal S1 and S2; no rubs, murmurs, or gallops; regular rate and rhythm ABDOMEN: Abdomen soft, non-tender. BS normal. No masses or organomegaly. MUSCULOSKELETAL: ROM full, muscles are not tender EXTREMITIES: no pitting edema in LE, no new deformities or skin discoloration. NEURO: Alert, oriented X 1, Sensation grossly intact., Cranial nerves II-XII intact, Grossly normal motor function. PULSES: 2+ radial, 2+ carotid REVIEW OF SYSTEMS: GENERAL: no malaise, no fevers., SEE HPI HEENT: Negative for frequent or significant headaches All other reviewed and negative other than HPI. Lab and Diagnostics Result Diagram: 04/05/1762404/05/17624 X-Rays, CTs and MRIs PROCEDURE: X-RAY RIGHT FEMUR, TWO VIEWS ([id number]) INDICATIONS: intertrochanteric fx. TECHNIQUE: 3 views of the femur were acquired. COMPARISON: [facility], CR, XR PELVIS W LATERAL HIP RT, 04/05/2017, 6:50. FINDINGS: Bones: There is osteopenia of the visualized osseous structures. A mildly displaced intertrochanteric fracture of the proximal right femur is redemonstrated. No distal femoral fracture identified. Visualized bony pelvis appears intact. Soft tissues: There are scattered vascular calcifications. IMPRESSION: 1. Mildly displaced intertrochanteric fracture of the proximal right femur redemonstrated. 2. No distal femoral fracture. Dictated by: Kodak Stein M.D. on 04/05/2017 at 8:34 Approved by: Kodak Stein M.D. on 04/05/2017 at 8:35 Assessment & Plan 87-year-old male with Alzheimer disease, chronic systolic CHF, CKD, dysphagia, history of NSTEMI, pressure ulcer presented after witnessed ground level fall, came from [facility]. Acute, active Witnessed ground-level Mechanical fall, POA, resultant Rt proximal IT fx -appreciate follow up -pt doesn't appearted to have any active cardiac dz which needs cardiac w/u prior to surgery, no s/s of ADHF although pt was not on any meds for long time. EKG sinus, no ischemic chg, renal function stable. -pain control with tylenol, morphine as needed -appreciate palliative care for pain management. - family working with CM/SW on placement with Hospice Chronic, stable hx of chronic HFrEF, NSTEMI, presumed stable pressure ulcer, wound care consult Alzheimer dementia, presumed stable dispo: pending, back to [facility] after surgery or no surgery dvt ppx:SCD DNR/DNI per POLST VTE Mechanical Devices: Intermittant Pneumatic CD Resuscitation Status: DNR/DNI:Do Not Resuscitate/Intubate Limited Interventions: Medications and IV Fluid Flex Ibarra MD Apr 10, 2017 13:30
--- NOTE | 2017-04-10 15:26 | NUR ---
RUCHI signed via T/C to pt's son John/KAYLEY [phone]
--- NOTE | 2017-04-10 15:27 | NUR ---
Social Work: Continued Discharge Planning DAP: T/C to Racheal at [facility] to discuss return. [facility] will accept pt on comfort care as long as hospice is not involved - [facility] will cover comfort care but not both comfort care and hospice. T/C to pt's son John to discuss comfort care v hospice private pay + [facility]. John stated that pt previously was on comfort care and skilled rehab at [facility] and they denied claim for comfort care. JOEY explained comfort care is a life ending measure and skilled rehab is a life saving measure - these are contradicting costs to insurance. JOEY stated that [facility] willing to take pt back on comfort care and pt would be covered so long as hospice isn't opening. John suspicious he was charged incorrectly and would like SW to confirm with financial counselor on Wednesday the exact cost of comfort care if pt returns to [facility]. SW to follow-up with financial counselor and confirm pt return costs (if any) if pt were to return on comfort care. Per Racheal at [facility], pt can return to [facility] on comfort care and costs would be covered by pt's insurance. YASMIN Donaldson
[2017-04-10 20:10] VITALS: BP 125/73; PULSE 110; RESP 24; O2SAT 96
[2017-04-11] MEDS: HYDROcodone-APAP 10-325 mg PO SCH ×4 (03:00→21:00)
--- NOTE | 2017-04-11 05:39 | NUR ---
activity/pain pt has been restless this shift. he continuously moves himself to wear his legs are dangling off the bed and has to be lifted back on the bed. he is pleasant until you have to move his legs and is then combative. nurse believes his restlessness is from pain however pt would not take any medication from nurse this shift. he is refusing turns as well. care continues
[2017-04-11 10:53] VITALS: BP 125/67; PULSE 83; RESP 20; O2SAT 96
[2017-04-11] MEDS ORDERED: ONDA4TAB12 PO (12:00)
[2017-04-11] MEDS ORDERED: LRZ2B30 SL/PO (12:00)
[2017-04-11] MEDS ORDERED: Acetaminophen PO (12:00)
[2017-04-11] MEDS ORDERED: HALO2ORA PO (12:00)
[2017-04-11] MEDS ORDERED: diphenHYDramine PO (12:00)
[2017-04-11] MEDS ORDERED: MORP100S5 SL/PO (12:00)
--- NOTE | 2017-04-11 12:06 | PCM.DC.MED ---
Discharge Summary Date of Service Apr 11, 2017 Dates of Hospitalization Date of Hospital Admission Apr 05, 2017 at 08:19 Date of Discharge: Apr 11, 2017 Providers: Admitting Physician: Lc Burris MD Primary Care Physician: Brady Sanchez MD Attending Physician: Aki Kurtz MD Diagnosis at Time of Discharge Diagnosis at Time of Discharge Rt proximal IT fx Dementia Consultations Palliative care Procedures XRay, CTs & MRIs PROCEDURE: X-RAY RIGHT FEMUR, TWO VIEWS ([id number]) INDICATIONS: intertrochanteric fx. TECHNIQUE: 3 views of the femur were acquired. COMPARISON: [facility], CR, XR PELVIS W LATERAL HIP RT, 04/05/2017, 6:50. FINDINGS: Bones: There is osteopenia of the visualized osseous structures. A mildly displaced intertrochanteric fracture of the proximal right femur is redemonstrated. No distal femoral fracture identified. Visualized bony pelvis appears intact. Soft tissues: There are scattered vascular calcifications. IMPRESSION: 1. Mildly displaced intertrochanteric fracture of the proximal right femur redemonstrated. 2. No distal femoral fracture. Dictated by: Kodak Stein M.D. on 04/05/2017 at 8:34 Approved by: Kodak Stein M.D. on 04/05/2017 at 8:35 Brief History PALLIATIVE CARE CONSULTATION Reason: GOC/pain management Requesting- Dr. Burris Hx taken from his hospital record and from TC discussion with his son John. 87 yo male who has been at [facility] under the care of Dr. Sanchez since October of this year. He had been at home with progressive dementia, frequent falls and what sounds like poor self care. He has had a decrease in appetite and would forget to eat and was having progressive weight loss. Since being at [facility] he was discharged from rehab due to an unwillingness/ inability to cooperate. He has continued to lose weight with report of a 20# loss over the past 4-5 months. He has frequent falls. His son is DPOAHC and manages his finances. He has been working on getting him on medicaid to cover SD expenses and states he just compiled the paperwork. His son feels his father would prefer to do nothing about his fracture. The pt states the same but doesn't recall having a fx. The son states Dr. Toledo had made a statement that the decision on surg could be postponed for up to 1 week and the son took that to mean he would be here for that time. He fears he will try and get out of bed again at the SD if he is sent back too soon. His son indicates that there is some concern by his children if the decision is to not do surgery. Hospital Course 87-year-old male with Alzheimer disease, chronic systolic CHF, CKD, dysphagia, history of NSTEMI, pressure ulcer presented after witnessed ground level fall, came from [facility]. Acute, active Witnessed ground-level Mechanical fall, POA, resultant Rt proximal IT fx -appreciate follow up -pain control with tylenol, morphine as needed -appreciate palliative care for pain management, decision made not to proceed with surgery but to return to his long-term care facility as comfort care only Chronic, stable hx of chronic HFrEF, NSTEMI, presumed stable Alzheimer dementia, presumed stable dvt ppx:SCD DNR/DNI per POLST Exam Vital Signs (Last) Date Time Temp Pulse Resp B/P Pulse Ox O2 Delivery O2 Flow Rate FiO2 04/11/17 10:53 83 20 125/67 96 Room Air 04/10/17 20:10 37.1 Exam General: somulent, minimal response to voice Heart: Regular Lungs: Clear anteriorly and laterally Abdomen: Soft, non-tender Extremities: No pedal edema Test 04/05/17 06:25 04/05/17 08:17 04/05/17 11:00 White Blood Count 6.9th/mm3 (3.8-10.1) Red Blood Count 4.14mil/mm3 (4.40-5.80) Hemoglobin 12.0g/dL (13.8-17.2) Hematocrit 36.1% (41.0-50.0) Mean Corpuscular Volume 87.2fL (81-100) Mean Corpuscular Hemoglobin 29.0pg (27.0-35.0) Mean Corpuscular Hemoglobin Concent 33.2% (32.0-37.0) Red Cell Distribution Width 13.9% (12.3-15.4) Platelet Count 311bil/L (150-400) Neutrophils (%) (Auto) 70.6% (40-74) Lymphocytes (%) (Auto) 19.5% (14-46) Monocytes (%) (Auto) 7.5% (4-12) Eosinophils (%) (Auto) 2.0% (0-5) Basophils (%) (Auto) 0.3% (0-3) Sodium Level 138mEq/L (134-144) Potassium Level 4.4mEq/L (3.5-5.2) Chloride Level 103mEq/L (97-108) Carbon Dioxide Level 24mmol/L (18-29) Blood Urea Nitrogen 21mg/dL (8-27) Creatinine 0.68mg/dL (0.76-1.27) Estimat Glomerular Filtration Rate 118mL/min (>59) Glucose Level 117mg/dL (60-99) Calcium Level 9.2mg/dL (8.5-10.1) Total Bilirubin 0.3mg/dL (0.0-1.2) Aspartate Amino Transf (AST/SGOT) 17U/L (0-50) Alanine Aminotransferase (ALT/SGPT) 16U/L (0-44) Alkaline Phosphatase 106U/L (25-160) Total Protein 6.4g/dL (6.4-8.4) Albumin 3.7g/dL (3.4-5.0) Hold P[place]a Top Tube Received (Received) Urine Color Straw (YELLOW) Urine Appearance Clear (CLEAR,HAZY) Urine pH 6.5 (5.0-8.0) Urine Specific [place] 1.015 (1.003-1.035) Urine Protein Negativemg/dL (NEG,TRACE) Urine Glucose (UA) Negativemg/dL (NEGATIVE) Urine Ketones Negativemg/dL (NEGATIVE) Urine Occult Blood Negative (NEGATIVE) Urine Nitrite Negative (NEGATIVE) Urine Bilirubin Negative (NEGATIVE) Urine Urobilinogen Normalmg/dL (NORMAL) Urine Leukocyte Esterase Negative (NEGATIVE) Urine RBC 0-2/hpf (0-2) Urine WBC 0-5/hpf (0-5) Urine Epithelial Cells None/hpf (NONE-MOD) Urine Crystals None seen (NONE SEEN) Urine Bacteria None/hpf (NONE-FEW) Urine Hyaline Casts None/lpf (NONE) Urine Granular Casts None seen (NONE SEEN) Urine Waxy Casts None seen (NONE SEEN) Urine Red Blood Cell Casts None seen (NONE SEEN) Urine White Blood Cell Casts None seen (NONE SEEN) Urine Mucus None seen (None Seen) Urine Trichomonas None seen (NONE SEEN) Urine Yeast None (NONE SEEN) Urinalysis Comment None Urine Culture Reflexed Not indicated Magnesium Level 1.8mg/dL (1.6-2.6) Discharge Medications As needed ([diphenHYDramine]) 2.5 MG/ML SYRUP 12.5 MG PO Q6H PRN PRN For Itching Prescribed by: AKI KURTZ MD ([Acetaminophen]) 325 MG TABLET 650 MG PO Q4H PRN PRN For Pain Prescribed by: AKI KURTZ MD Acetaminophen (Acetaminophen) 325 Mg Capsule 325-650 MG PO q4 hours PRN PRN For Pain Prescribed by: EDMUNDO DA SILVA MD Bisacodyl (Dulcolax Rectal) 10 Mg Supp.rect 10 MG RC DAILY PRN PRN For Constipation (Reported) Haloperidol Lactate (Haloperidol Lactate) 2 Mg/1 Ml Oral.conc 0.5-2 MG PO Q2 PRN PRN For Agitation Prescribed by: AKI KURTZ MD Lorazepam Intensol (Lorazepam Intensol) 2 Mg/Ml Conc 0.5-2 MG SL/PO Q2 PRN PRN For Agitation Prescribed by: AKI KURTZ MD Magnesium Hydroxide (Milk of Magnesia) 400 Mg/5 Ml Oral.susp 30 ML PO DAILY PRN PRN For Constipation (Reported) Morphine Sulfate Oral Concentrate (Roxanol Oral Concentrate) 100 Mg/5 Ml (20 Mg/ Ml) Solution 5-20 MG SL/PO Q2 PRN PRN For Pain Prescribed by: MD Leelee BRENNER Phochalino,M-B/Leelee Phos,Di-Ba (Fleet Enema) 133 Ml Enema 133 ML RC DAILY PRN PRN For Constipation (Reported) Ondansetron ODT (Ondansetron ODT) 4 Mg Tab.rapdis 8 MG PO Q4H PRN PRN For Nausea /Vomiting Prescribed by: MD Freddie BRENNER Peggy E MD Apr 11, 2017 12:06
--- NOTE | 2017-04-11 19:13 | NUR ---
Pain/D[place] Dose Dallas 10/325mg q6h (scheduled dose) admin this a.m. d/t patient agreeing to take. Patient slept most of the day, RR WNL, somnolent mentation, aroused w/ light touch, told oncoming RN that that dose was likely too high of a dose. Patient comfortable most of the day, able to change gown/linens w/ no complications.
[2017-04-11 23:08] VITALS: BP 149/71; PULSE 82; RESP 20; O2SAT 94
[2017-04-12] MEDS: HYDROcodone-APAP 10-325 mg PO SCH ×2 (03:00→09:00)
--- NOTE | 2017-04-12 04:55 | NUR ---
activity pt has slept throughout shift appearing comfortable. pt easily awakens to voice but has refused all care and medications. he quickly falls back asleep when nurse not speaking to him. VSS and RR WNL. hourly rounding continues.
--- NOTE | 2017-04-12 09:03 | NUR ---
RUCHI signed by pt's DPOA John Johnson, CERTIFIED MEDICAL ASSISTANT
--- NOTE | 2017-04-12 10:50 | PCM.PNMED ---
Subjective Date of Service Apr 12, 2017 Subjective sleeping peacefully Exam Vital Signs Vital Sign - Last Date Time Temp Pulse Resp B/P Pulse Ox O2 Delivery O2 Flow Rate FiO2 04/11/17 23:08 35.6 82 20 149/71 94 Room Air Intake and Output 04/11/17 04/11/17 04/12/17 Cumulative From/Thru 15:00 23:00 07:00 04/05/17 06:02 - 04/12/17 05:27 Intake Total 200 ml 0 ml 5287 ml Output Total 250 ml 150 ml 4875 ml Balance -50 ml -150 ml 412 ml Intake Oral 200 ml 0 ml 1748 ml IV Total 3539 ml Output Urine Total 250 ml 150 ml 4875 ml # Bowel Movements 1 1 Lab and Diagnostics X-Rays, CTs and MRIs PROCEDURE: X-RAY RIGHT FEMUR, TWO VIEWS ([id number]) INDICATIONS: intertrochanteric fx. TECHNIQUE: 3 views of the femur were acquired. COMPARISON: [facility], CR, XR PELVIS W LATERAL HIP RT, 04/05/2017, 6:50. FINDINGS: Bones: There is osteopenia of the visualized osseous structures. A mildly displaced intertrochanteric fracture of the proximal right femur is redemonstrated. No distal femoral fracture identified. Visualized bony pelvis appears intact. Soft tissues: There are scattered vascular calcifications. IMPRESSION: 1. Mildly displaced intertrochanteric fracture of the proximal right femur redemonstrated. 2. No distal femoral fracture. Dictated by: Kodak Stein M.D. on 04/05/2017 at 8:34 Approved by: Kodak Stein M.D. on 04/05/2017 at 8:35 Assessment & Plan Discharge delayed overnight due to son's concern's about financial arrangements , see discharge summary completed yesterday VTE Mechanical Devices: Intermittant Pneumatic CD Resuscitation Status: DNR/DNI:Do Not Resuscitate/Intubate Limited Interventions: Medications and IV Fluid Sarah Frazier MD Apr 12, 2017 10:50
--- NOTE | 2017-04-12 11:14 | PCM.DIMED ---
Discharge Instructions Date of Service Apr 12, 2017 Dates of Hospitalization Apr 05, 2017 at 08:19 Discharge Diagnosis Discharge Diagnosis Rt proximal IT fx Dementia Diet Discharge Diet: No restrictions Activity Discharge Activity: No restrictions Sarah Frazier MD Apr 12, 2017 11:14
--- NOTE | 2017-04-12 12:00 | NUR ---
Social Work- Discharge Data: EMR reviewed. Pt is on day 7 of hospitalization. Pt discussed in multidisciplinary rounds, pt is medically stable to d/c today. BLS transport order received. [facility] on behalf of pt's son John. Sarahi Overton is out of the office this week, Andrew in admissions is covering the business office this week. Andrew states that pt's outstanding bill is not a barrier to his acceptance as pt's son is working to pay down this bill. Pt has also applied for [facility], INSURANCE CODER confirmed that pt's son John submitted yulia with Serge at [facility]. Andrew confirms that pt's [facility]SH[facility] will retro back 3 months from point of approval. Pt is eligible for another 100 days of [facility] Skilled RN with associated copays after 20 days. Andrew is agreeable to pt d/c today to [facility]. T/T son John in the hospital regarding d/c planning. John is agreeable to pt's return to [facility] on comfort care with no hospice services at this time. If John changes his mind, he is aware of how to contact [facility]. Information above relayed to John, John is agreeable. John informed of BLS transportation order. John aware that insurance coverage of BLS transportation is not guaranteed, verbalized understanding and agreement. T/C to [facility] regarding pt d/c to [facility] with no hospice services at this time. T/C [facility] regarding transport, set up transport at 12 noon Andrew at [facility] was faxed discharge packet and orders, notified of 12 noon d/c. Paperwork completed by RN. John notified of noon transport, is agreeable. Pt is agreeable to transport, notified at bedside. Pt to d/c to [facility] with [facility] to follow, transport via BLS at noon. RN, UC, pt/family, and [facility] all updated and agreeable to plan. Assessment: Pt for whom SNF is medically necessary Plan: Pt to d/c to [facility] on comfort care, BLS transport at 12 noon. RN, UC, pt/family, and [facility] all updated and agreeable to plan. Jana Johnson, INSURANCE CODER
--- NOTE | 2017-04-12 12:16 | NUR ---
Transfer to [facility] Pt transferred to [facility] via BLS at 1215. Prior to transport, pt was medicated with 650 mg Tylenol, had Mepilex replaced on spine and sacrum, and was provided emigdio/cath/skin care with a new brief applied. Small BM noted. Pt denies pain at rest and tolerated turns fair after Tylenol administration. Report called to Nargis at receiving facility.
== END 2017-04-12 12:08 | DRG 536 ==
LOC: SED 06:01 → OSC 08:19
PROVIDERS: ADMIT Internal Medicine; ATTEND Internal Medicine
DX: S72.141A Displaced intertrochanteric fracture of right femur, initial encounter for closed fracture (principal); I50.22 Chronic systolic (congestive) heart failure; R64 Cachexia; G30.9 Alzheimer's disease, unspecified; F02.80 Dementia in other diseases classified elsewhere, unspecified severity, without behavioral disturbance, psychotic disturbance, mood disturbance, and anxiety; I25.10 Atherosclerotic heart disease of native coronary artery without angina pectoris; R29.6 Repeated falls; Z66 Do not resuscitate; I25.5 Ischemic cardiomyopathy; L89.890 Pressure ulcer of other site, unstageable; R41.0 Disorientation, unspecified; Z51.5 Encounter for palliative care; W01.0XXA Fall on same level from slipping, tripping and stumbling without subsequent striking against object, initial encounter; L89.150 Pressure ulcer of sacral region, unstageable; Y93.9 Activity, unspecified; Y92.129 Unspecified place in nursing home as the place of occurrence of the external cause; I25.2 Old myocardial infarction; Z68.21 Body mass index [BMI] 21.0-21.9, adult